=== PATIENT | female | born 1985 | race African-American/Black ===

== ENCOUNTER 2016-10-03 03:45 | Inpatient (IN) | payer MEDICAID, OTHER ==
[2016-10-03 05:20] LABS: APPEARANCE,URINE CLOUDY; BILIRUBIN,URINE NEGATIVE (NEGATIVE); GLUCOSE, URINE NEGATIVE (NEGATIVE); KETONES,URINE NEGATIVE (NEGATIVE); LEUKOCYTE ESTERASE,URINE SMALL (NEGATIVE); NITRITE,URINE NEGATIVE (NEGATIVE); PROTEIN,URINE 100 mg/dL (NEGATIVE); URINE SPECIFIC GRAVITY 1.005; UROBILINOGEN,URINE NEGATIVE mg/dL (<2.0)
[2016-10-03 05:23] LABS: ABSOLUTE EOSINOPHILS # (AUTO) 0.1 10^3/uL (0.0-0.6); ABSOLUTE LYMPHOCYTES (AUTO) 1.7 10^3/uL (0.5-4.7); ABSOLUTE MONOCYTES (AUTO) 0.9 10^3/uL (0.1-1.4); ABSOLUTE NEUT (AUTO) 10.5 10^3/uL (1.7-8.2); BASOPHILS % (AUTO) 0.2 % (0-2); EOSINOPHILS % (AUTO) 0.6 % (0-6); HEMATOCRIT 33.5 % (36.0-47.0); HEMOGLOBIN 10.5 g/dL (12.0-15.5); LYMPHOCYTES % (AUTO) 13.1 % (13-45); MEAN CORPUSCULAR HGB CONC 31.4 g/dL (32.0-36.0); MEAN CORPUSCULAR VOLUME 80 fl (80-97); MONOCYTES % (AUTO) 6.9 % (3-13); RED BLOOD COUNT 4.21 10^6/uL (3.72-5.28); SEGMENTED NEUTROPHILS % (AUTO) 79.2 % (42-78); WHITE BLOOD COUNT 13.2 10^3/uL (4.0-10.5)
[2016-10-03 05:43] LABS: URINE BARBITURATES SCREEN NEGATIVE; URINE METHADONE SCREEN NEGATIVE; URINE OPIATES LOW NEGATIVE; URINE PHENCYCLIDINE SCREEN NEGATIVE
[2016-10-03] MEDS ORDERED: EPHEDRINE SULFATE INJ 50 MG/1 ML AMPULE IV PRN (07:47)
[2016-10-03] MEDS ORDERED: BENZOIN/ALOE VERA/STORAX/TOLU TINCTURE 60 ML TP PRN (07:47)
[2016-10-03] MEDS ORDERED: BUPIVACAINE HCL 0.25 % INJ/PF (2.5 MG/1 ML) 30 ML VIAL INFIL ONE (07:47)
[2016-10-03] MEDS ORDERED: FENTANYL CITRATE INJ/PF 100 MCG/2 ML AMPUL ONE ×4 (08:32→21:16)
[2016-10-03] MEDS ORDERED: EPHEDRINE SULFATE INJ 50 MG/1 ML AMPULE ONE ×2 (08:32→19:32)
[2016-10-03] MEDS: FENTANYL/BUPIVACAINE/NS/PF 100 ML EPI PRN ×4 (08:54→21:29)
[2016-10-03] MEDS: RINGERS SOLUTION,LACTATED 1,000 ML IV PRN ×3 (08:55→15:53)
[2016-10-03] MEDS ORDERED: DEXAMETHASONE SOD PHOSPHATE INJ 4 MG/1 ML VIAL ONE (09:28)
[2016-10-03] MEDS ORDERED: METOCLOPRAMIDE HCL INJ/PF 10 MG/2 ML SDV ONE (09:28)
[2016-10-03] MEDS ORDERED: KETOROLAC TROMETHAMINE 60 MG/2 ML SDV ONE (09:28)
[2016-10-03] MEDS ORDERED: ONDANSETRON HCL INJ/PF 4 MG/2 ML SDV ONE (09:28)
[2016-10-03] MEDS ORDERED: LIDOCAINE 2% INJ-PF (20 MG/ML) 10 ML AMPUL ONE ×2 (09:28→19:20)
[2016-10-03] MEDS ORDERED: BUPIVACAINE HCL 0.25 % INJ/PF (2.5 MG/1 ML) 30 ML VIAL ONE (09:43)
[2016-10-03] MEDS ORDERED: OXYTOCIN/NORMAL SALINE 20 UNIT/1,000 ML RTUINJ ONE ×2 (09:43→19:32)
[2016-10-03] MEDS: OXYTOCIN/NORMAL SALINE 1,000 ML IV PRN ×2 (11:21→21:29)
[2016-10-03] MEDS: DEXTROSE 5%-LACTATED RINGERS 1,000 ML IV PRN ×3 (11:22→21:30)
--- NOTE | 2016-10-03 12:30 | L&D Progress Notes ---
PROGRESS NOTES Datetime Report Generated by CPN: 10/03/2016 12:29 PROGRESS NOTE Impression: Premature Rupture of Membranes Procedures: Sterile Vag Exam Plan: Augmentation Comment: cont to monitor for infection, appropriate cervical change VAGINAL EXAM Dilatation: 2 Effacement: 30 Station: 0 MEMBRANES Pooling: Positive Membranes: Ruptured FETUS A FHR Category: Category I : 39.0 Presentation: Vertex SIGNATURE SIGNATURE: [id number] Signature: with User ID: [email or web address]
--- NOTE | 2016-10-03 15:06 | L&D Progress Notes ---
PROGRESS NOTES Datetime Report Generated by CPN: 10/03/2016 15:06 PROGRESS NOTE Comment: EFW 8 pound 1 oz at recent sono. Head somewhat molded. IUPC placed to eval adequacy of ctxsx-pit currently at 12 mu. Cont induction. VAGINAL EXAM Dilatation: 6 Effacement: 100 Station: -1 FETUS A FHR Category: Category I FETUS C SIGNATURE: [id number] Signature: with User ID: [email or web address]
[2016-10-03] MEDS ORDERED: FENTANYL/BUPIVACAINE/NS/PF 200 MCG/100 ML RTUINJ EPI ONE (15:53)
--- NOTE | 2016-10-03 19:06 | L&D Progress Notes ---
PROGRESS NOTES Datetime Report Generated by CPN: 10/03/2016 19:06 PROGRESS NOTE Impression: Arrest of Dilatation/Descent Informed Consent Obtained: Section Delivery Comment: Cervix unchanged despite adequate ctxs. Head molded. Discussed r/b/a of and consent obtained. FETUS A FHR Category: Category I FETUS C SIGNATURE: [id number] Signature: with User ID: [email or web address]
[2016-10-03] MEDS ORDERED: CITRIC ACID/SODIUM CITRATE ORAL SOLN 15 ML UDCUP PO ONE (19:09)
[2016-10-03] MEDS ORDERED: CEFAZOLIN 2 GM/D5W RTU 50 ML IV PRN (19:09)
[2016-10-03] MEDS ORDERED: CITRIC ACID/SODIUM CITRATE ORAL SOLN 15 ML UDCUP ONE (19:15)
[2016-10-03] MEDS ORDERED: CEFAZOLIN 2 GM/D5W RTU 2 GM/50 ML RTUPB IV ONE (19:15)
[2016-10-03] MEDS ORDERED: OXYTOCIN 10 UNIT/ML VIAL ONE (19:32)
[2016-10-03] MEDS ORDERED: MIDAZOLAM 2 MG/2 ML INJ ONE (19:33)
[2016-10-03] MEDS ORDERED: MISOPROSTOL 0.2 MG TABLET ONE (19:50)
[2016-10-03] MEDS ORDERED: MORPHINE SULFATE 10 MG/ML INJ IV PRN (20:14)
[2016-10-03] MEDS ORDERED: DIPHENHYDRAMINE HCL 50 MG/ML VIAL IV PRN (20:14)
[2016-10-03] MEDS ORDERED: FENTANYL CITRATE INJ/PF 100 MCG/2 ML AMPUL IV PRN ×2 (20:14)
[2016-10-03] MEDS ORDERED: PROMETHAZINE HCL INJ 25 MG/1 ML VIAL IV PRN ×3 (20:14→21:40)
[2016-10-03] MEDS ORDERED: ONDANSETRON HCL INJ/PF 4 MG/2 ML SDV IV PRN ×2 (20:14→21:37)
[2016-10-03] MEDS: FENTANYL CITRATE INJ/PF 100 MCG/2 ML AMPUL IV PRN ×2 (20:25→21:32)
[2016-10-03] MEDS ORDERED: ACETAMINOPHEN 100 ML IV ONE (20:34)
[2016-10-03] MEDS ORDERED: MEPERIDINE HCL/PF INJ 25 MG/1 ML DISP.SYRIN ONE (20:51)
[2016-10-03] MEDS: MEPERIDINE HCL/PF INJ 25 MG/1 ML DISP.SYRIN IV PRN ×2 (20:51→20:58)
[2016-10-03] MEDS ORDERED: ACETAMINOPHEN 325 MG TABLET PO PRN (21:33)
[2016-10-03] MEDS ORDERED: OXYTOCIN/NORMAL SALINE 20 UNIT/1,000 ML RTUINJ INJ PRN (21:33)
[2016-10-03] MEDS ORDERED: PROMETHAZINE HCL INJ 25 MG/1 ML VIAL IM PRN (21:33)
[2016-10-03] MEDS ORDERED: HYDROMORPHONE HCL INJ/PF 2 MG/ML AMPULE IV PRN (21:33)
[2016-10-03] MEDS ORDERED: OXYCODONE-ACETAMINOPHEN 5-325 MG TABLET PO PRN (21:33)
[2016-10-03] MEDS ORDERED: MEASLES,MUMPS&RUBELLA VACC/PF 0.5 ML VIAL SUBCUT PRN (21:33)
[2016-10-03] MEDS ORDERED: DIPH/PERTUSS(ACELL)/TETANUS VAC/PF 0.5 ML SYR (>=10YO) IM PRN (21:33)
--- NOTE | 2016-10-03 21:38 | Delivery Summary ---
Del Sum A-C Datetime Report Generated by CPN: 10/03/2016 21:38 DELIVERY PERSONNEL DELIVERY PERSONNEL: [id number] Delivery Doctor:: Racheal Currie MD Anesthesiologist:: Jennifer Pascal MD JEWELRY ESTIMATOR:: Eliane Amezcua CRNA Labor and Delivery Nurse:: Yadira Gunn RNadding machine servicer Nurse:: Lucia Chino RN Neonatal Nurse Practitioner:: DARLYN Lakhani Nursery Nurse:: Racheal Sung RN Hair Dresser/RIGHT OF WAY APPRAISER: ST [facility] Hair Dresser/RIGHT OF WAY APPRAISER: Kylie Green ST MATERNAL INFORMATION Delivery Anesthesia: Epidural Medications After Delivery: Pitocin Bolus-Please Comment; Other-Please Comment Meds After Delivery Comment: cytotec 1000 mcg MA in OR given by MD Maternal Complications: None LABOR SUMMARY EDC: 10/06/2016 00:00 No. Babies in Womb: 1 Attempted: No Labor Anesthesia: Epidural LABOR INFORMATION Reason for Induction: Not Applicable Onset of Labor: 10/03/2016 12:23 Oxytocin: Augmentation Group B Beta Strep: neg Antibiotics # of Doses: 0 Antibiotics Time of Last Dose: N/A Steroids Given: None Reason Steroids Not Administered: Not Applicable MEMBRANES Membranes Rupture Method: Spontaneous Rupture of Membranes: 10/02/2016 20:00 Length of Rupture (hr): 23.95 Amniotic Fluid Color: Clear Amniotic Fluid Amount: Small Amniotic Fluid Odor: Normal STAGES OF LABOR Stage 3 hr: 0 Stage 3 min: 2 Total Time in Labor hr: 7 Total Time in Labor min: 36 VAGINAL DELIVERY Episiotomy: None Laceration Extension: N/A Laceration Repair: Not Applicable Sponge Count Correct: N/A Sharps Count Correct: N/A CSECTION DELIVERY Primary Indication: failure to progress CSection Urgency: Non-Scheduled CSection Incidence: N/A Labor: Labor Elective: Nonelective CSection Incision: N/A BABY A INFORMATION Infant Delivery Date/Time: 10/03/2016 19:57 Method of Delivery: Born in Route : No : N/A Forceps: N/A Vacuum Extraction: N/A Shoulder Dystocia : No PRESENTATION/POSITION BABY A Presentation: Cephalic Cephalic Presentation: Vertex Breech Presentation: N/A PLACENTA INFORMATION BABY A Placenta Delivery Time : 10/03/2016 19:59 Placenta Method of Delivery: Expressed Placenta Status: Delivered SCORES BABY A Heart Rate 1 min: >100 bpm Resp Effort 1 min: Good Cry Reflex Irritability 1 min: Cough or Sneeze or Pulls Away Muscle Tone 1 min: Active Motion Color 1 min: Blue/Pale SCORE 1 MIN: 8 Heart Rate 5 min: >100 bpm Resp Effort 5 min: Good Cry Reflex Irritability 5 min: Cough or Sneeze or Pulls Away Muscle Tone 5 min: Active Motion Color 5 min: Body [place], Extremities Blue SCORE 5 MIN: 9 INFANT INFORMATION BABY A Gestational Age at Delivery: 39.4 Gestational Status: Full Term- 39- 40.6 Weeks Infant Outcome : Liveborn Infant Condition : Stable Infant Sex: Male IDENTIFICATION BABY A Infant Verification Date/Time: 10/03/2016 19:59 ID Band Number: [id number] Mother's Name Verified: Yes Infant RN Verifying Infant: Hao Gunn, RN Additional Verifying Personnel: Leonardo Chino RN WEIGHT/LENGTH BABY A Infant Birthweight (gm): 4380 Weight (lb): 9 Infant Weight (oz): 10 Infant Length (in): 21.00 Infant Length (cm): 53.34 CORD INFORMATION BABY A No. Cord Vessels: 3 Nuchal Cord : N/A Cord Blood Taken: Yes-For Eval (Mom's Blood Type - or O+) Suction: Mouth; Nose ASSESSMENT BABY A Complications: None Physical Findings at Delivery: Molding of the Head Physical Findings- Other: initial assessment to be completed by Ricardo sung RN who is at bedside Infant Respirations: Appears Normal Skin to Skin: Yes Data Services Developer/ALS Called : Yes Care By: Ricardo Sung RN Transferred To: [facility]
--- NOTE | 2016-10-03 21:39 | OPERATIVE REPORT E ---
Operative Report NAME: SHASHA OLIVEIRA : 1985 AGE: 31Y DATE OF SURGERY: 10/03/2016 ROOM: LR200 PREOPERATIVE DIAGNOSIS: Intrauterine at term with premature rupture of membranes, arrest of labor. POSTOPERATIVE DIAGNOSIS: Intrauterine at term with premature rupture of membranes, arrest of labor. OPERATION: Primary low-transverse . SURGEON: NADER DIAZ M.D. ANESTHESIA: Epidural which was bolus. ESTIMATED BLOOD LOSS: 600 mL. SPECIMEN TO PATHOLOGY: Placenta. FINDINGS: Adams male infant, vertex presentation. Apgars 8 and 9. Weight was 4380 gm or 9 pounds 10 ounces. Normal-appearing uterus, tubes, and ovaries. DESCRIPTION OF PROCEDURE: After discussing risks, benefits, and alternatives of the procedure and obtaining informed consent, the patient was taken to the operating room with her epidural bolus. She was positioned in the dorsal supine position with a leftward tilt and prepped and draped in the usual standard fashion. Anesthesia was found to be adequate and Pfannenstiel skin incision was made. The abdomen was entered in layers in the usual standard fashion. A low transverse cervical incision was made. Surgeon's hand was entered into the hysterotomy incision and the vertex elevated out of the pelvis and delivered. The shoulders and body delivered thereafter. Cord was clamped x2 and cut. Nasopharynx and oropharynx were bulb suctioned. was handed to pediatrics who were present. Placenta was manually extracted. Uterus was exteriorized and cleared of all clots and debris. Hysterotomy incision was closed with 0 Monocryl in a double-layer fashion. Excellent hemostasis was observed. Uterus, tubes, and ovaries returned to the peritoneal cavity, and the cavity was irrigated. Hemostasis was again assured. A layer of Interceed was placed over the anterior aspect of the uterus and lower uterine segment. The peritoneum was closed with 2-0 Vicryl in a running fashion. The rectus muscles were loosely reapproximated with 2-0 Vicryl in an interrupted fashion. The subfascial spaces were inspected and noted to be hemostatic. The fascia was closed with #1 Vicryl. Subcutaneous tissues were irrigated and hemostasis achieved with cautery. Skin was closed in a subcuticular fashion with 4-0 Vicryl. An OpSite dressing was applied. Cytotec 1000 mcg was placed in the rectum, as the patient had had a large infant and protracted labor. All sponge, needle, lap, and instrument counts were correct x2. DICTATING PHYSICIAN: NADER DIAZ M.D. [id number] PHY#: [id number] ID: [id number] JOB#: [id number] ACCT: [id number] cc:NADER DIAZ M.D. >
[2016-10-03] MEDS ORDERED: NA PHOS,M-B/NA PHOS,DI-BA (ADULT) 133 ML ENEMA PR PRN (21:40)
[2016-10-03] MEDS ORDERED: DIPHENHYDRAMINE HCL 25 MG CAPSULE PO PRN (21:40)
[2016-10-03] MEDS ORDERED: PROMETHAZINE HCL 25 MG SUPP.RECT PR PRN (21:40)
[2016-10-03] MEDS ORDERED: ACETAMINOPHEN 650 MG SUPP.RECT PR PRN (21:40)
[2016-10-03] MEDS ORDERED: PROMETHAZINE HCL 25 MG TABLET PO PRN (21:40)
[2016-10-03] MEDS ORDERED: PSEUDOEPHEDRINE HCL 30 MG TABLET PO PRN (21:40)
[2016-10-03] MEDS ORDERED: GLYCERIN/WITCH HAZEL LEAF 1 EACH MED..PAD TP PRN (21:40)
[2016-10-03] MEDS ORDERED: MAGNESIUM HYDROXIDE SUSP 30 ML UDCUP PO PRN (21:40)
[2016-10-03] MEDS ORDERED: OXYTOCIN/NORMAL SALINE 1,000 ML IV PRN (21:42)
[2016-10-03] MEDS ORDERED: ACETAMINOPHEN INJ/PF 1000 MG/100 ML SDV IV ONE (21:45)
[2016-10-03] MEDS: KETOROLAC TROMETHAMINE INJ/PF 30 MG/1 ML SDV IV SCH (21:57)
[2016-10-03] MEDS ORDERED: MORPHINE SULFATE 10 MG/ML INJ ONE (22:32)
--- NOTE | 2016-10-03 23:41 | Admission Physical ---
Datetime Report Generated by CPN: 10/03/2016 23:41 CURRENT ADMISSION Chief Complaint: Uterine Contractions; Suspected Ruptured Membranes Indication for Induction: Not Applicable Admit Plan: Admit to Unit; Initiate Labor Protocol ALLERGIES Medication Allergies: No Medication Allergies: No Known Allergies (10/03/2016) Latex: No Latex Allergies Food Allergies: None Environmental Allergies: None OBSTETRICAL HISTORY EDC: 10/06/2016 00:00 : 1 Para: 0 Term: 0 : 0 SAB: 0 IAB: 0 Ectopic: 0 Livin Cesareans: 0 VBACs: 0 Multiple Births: 0 Gestational Diabetes: No Rh Sensitization: No Incompetent Cervix: No VIKTORIA: No Infertility: No ART Treatment: No Uterine Anomaly: No IUGR: No Hx Previous C/S: No Macrosomia: No Hx Loss/Stillborn: No PIH: No Hx : No Placenta Previa/Abruption: No Depression/PP Depression: No PTL/PROM: No Post Hemorrhage: No Current Procedures: Ultrasound Obstetrical History Comments: 2016 current SEE RECORDS Alcohol: No Marijuana : No Cocaine: No Other Illicit Drugs: No Cigarettes: Never Smoker. 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 Surgery: No Heart Disease: No Hosp/Surgery: No Autoimmune Disorder: No Anesthetic Complications: No Kidney Disease: No Abnormal Pap Smear: No Neuro/Epilepsy: No Psychiatric Disorders: No Other Medical Diseases: No Hepatitis/Liver Disease: No Significant Family History: No Varicosities/Phlebitis: No Trauma/Violence : No Thyroid Dysfunction: No INFECTIOUS HISTORY Gonorrhea: No Genital Herpes: No Chlamydia: No Tuberculosis: No Syphilis: No Hepatitis: No HIV/AIDS Exposure: No Rash or Viral Illness: No HPV: No PHYSICAL EXAM General: Normal HEENT: Normal Neurologic: Normal Thyroid: Normal Heart: Normal Lungs: Normal Breast: Deferred Back: Normal Abdomen: Normal Genitourinary Exam: Normal Extremities: Normal DTRs: Normal Pelvic Type: Adequate Vital Signs: Reviewed VAGINAL EXAM Dilatation: 6 Dilatation: 2 Effacement: 100 Effacement: 30 Station: -1 Station: 0 MEMBRANES Pooling: Positive Membranes: Ruptured FETUS A EGA: 39.4 Monitoring: External US FHR- Baseline: 150 Variability: Moderate 6-25bpm Decelerations: None FHR Category: Category I Presentation: Vertex PLANS FOR LABOR AND DELIVERY Labor and Delivery: None Pain Management: Epidural Feeding Preference: Breast Benefit of Breast Feed Discussed: Yes Circumcision: Yes INFORMED CONSENT Informed Consent Obtained: Section Delivery Signature: with User ID: [email or web address]
[2016-10-03] MEDS: FAMOTIDINE 20 MG TABLET PO SCH (23:53)
[2016-10-04] MEDS: CEFAZOLIN 1 GM/D5W RTU 1 GM/50 ML RTUPB IV SCH ×2 (01:12→09:45)
[2016-10-04] MEDS: KETOROLAC TROMETHAMINE INJ/PF 30 MG/1 ML SDV IV SCH ×2 (05:17→14:56)
[2016-10-04 07:30] LABS: HEMATOCRIT 30.6 % (36.0-47.0); HEMOGLOBIN 9.7 g/dL (12.0-15.5); HGB HCT DIFFERENCE -1.5; MEAN CORPUSCULAR HGB CONC 31.9 g/dL (32.0-36.0); MEAN CORPUSCULAR VOLUME 78 fl (80-97); RED CELL DISTRIBUTION WIDTH 17.4 % (11.5-14.0)
[2016-10-04] MEDS: OXYCODONE-ACETAMINOPHEN 5-325 MG TABLET PO PRN (09:43)
[2016-10-04] MEDS: PRENATAL VITAMIN W-O CA NO5/FE FUMARATE/FA CAPSULE PO SCH (09:44)
[2016-10-04] MEDS: DOCUSATE SODIUM 100 MG CAPSULE PO SCH ×2 (09:44→18:14)
[2016-10-04] MEDS: FAMOTIDINE 20 MG TABLET PO SCH ×2 (09:45→21:55)
--- NOTE | 2016-10-04 12:05 | PDOC PROGRESS REPORT ---
Subjective-OB Subjective: Post Delivery Day: 31 year old. Denies any needs at this time s/p primary c section greater than 24 hours ruptured- was on Ancef- iv infiltrated pt only received 2 doses afebrile WBC 21. will restart iv at this time abdomen distended and tympanic- not painful bs x4- encouraged pt to ambulate hourly reports burping no flatus, no bowel movement dressing dry and intact no new drainage noted abdominal binder to belly ff@u-1 instructions reviewed with pt and mother Physical Exam (OB) Vital Signs: Temp Pulse Resp BP Pulse Ox 97.7 F 87 17 122/81 98 10/04/16 07:50 10/04/16 07:50 10/04/16 07:50 10/04/16 07:50 10/04/16 07:50 Intake & Output 10/03/16 10/04/16 10/05/16 06:59 06:59 06:59 Output Total 2400 900 Balance -2400 -900 Weight 77.9 kg - Dressing Removed: No - opsite dressing in place Incision: Dressing Closure Type: Sutures - Lochia Lochia Amount: Scant < 10 ml Lochia Color: Rubra/Red - Abdomen Description: Tender, Soft Hernia Present: No Fundal Description: Firm, Midline Fundal Height: u/u - u/2 Objective-Diagnostic Laboratory: 10/04/16 07:10 10/04/16 07:10 WBC 21.0 H RBC 3.90 Hgb 9.7 L Hct 30.6 L MCV 78 L MCH 25.0 L MCHC 31.9 L RDW 17.4 H Plt Count 168
[2016-10-04] MEDS ORDERED: RINGERS SOLUTION,LACTATED 1,000 ML IV PRN (18:00)
[2016-10-04] MEDS: IBUPROFEN 800 MG TABLET PO SCH (21:55)
[2016-10-04] MEDS: SIMETHICONE 80 MG TAB.CHEW PO PRN (22:06)
[2016-10-05] MEDS: IBUPROFEN 800 MG TABLET PO SCH ×3 (03:37→14:00)
[2016-10-05] MEDS: OXYCODONE-ACETAMINOPHEN 5-325 MG TABLET PO PRN (03:37)
[2016-10-05] MEDS: FAMOTIDINE 20 MG TABLET PO SCH (09:48)
[2016-10-05] MEDS: PRENATAL VITAMIN W-O CA NO5/FE FUMARATE/FA CAPSULE PO SCH (09:48)
[2016-10-05] MEDS: DOCUSATE SODIUM 100 MG CAPSULE PO SCH ×2 (09:48→17:08)
[2016-10-05] MEDS: SIMETHICONE 80 MG TAB.CHEW PO PRN (09:48)
--- NOTE | 2016-10-05 10:28 | PDOC PROGRESS REPORT ---
Subjective-OB Subjective: Post Delivery Day: 2 31 year old. Denies any needs at this time, struggling with , unsure about discharge to day, voiding, passing gas, pain well controlled. Pt will discuss with her mother and decide later. Lochia is stable. Physical Exam (OB) Vital Signs: Temp Pulse Resp BP Pulse Ox 98.0 F 92 16 121/72 99 10/05/16 08:10 10/05/16 08:10 10/05/16 08:10 10/05/16 08:10 10/05/16 08:10 Intake & Output 10/04/16 10/05/16 10/06/16 06:59 06:59 06:59 Intake Total 2450 Output Total 2400 1900 Balance -2400 550 Weight 77.9 kg - Dressing Removed: No - opsite Incision: Dressing Closure Type: Sutures - Lochia Lochia Amount: Small 10-25 ml Lochia Color: Rubra/Red - Abdomen Description: Soft, Round Hernia Present: No Fundal Description: Firm, Midline Fundal Height: u/u - u/2 Objective-Diagnostic Laboratory: 10/04/16 07:10 Assessment and Plan(PN) - Assessment and Plan (1) Acute blood loss anemia Is this a current diagnosis for this admission?: YesPlan: ferrous sulfate increase dietary iron (2) Delivery by emergency caesarean section Is this a current diagnosis for this admission?: YesPlan: routine post op care d/c home late may cancel d/c if pt needs more assistance or baby is not d/c - Time Spent with Patient Time with patient: Less than 15 minutes Critical Time spent with patient: Less than 15 minutes Medications reviewed and adjusted accordingly: Yes - Disposition Anticipated Discharge: Home Within: within 24 hours
--- NOTE | 2016-10-05 10:30 | PDOC DISCHARGE SUMMARY ---
Final Diagnosis Discharge Date: 10/05/16 - Final Diagnosis (1) Acute blood loss anemia Is this a current diagnosis for this admission?: Yes (2) Delivery by emergency caesarean section Is this a current diagnosis for this admission?: Yes Discharge Data - Discharge Medication Home Medications: Vit/Iron Fumarate/FA [ Tablet] 1 tab PO DAILY 10/03/16 Docusate Sodium [Colace 100 mg Capsule] 100 mg PO BID #60 capsule 10/05/16 Ferrous Sulfate [Iron] 325 mg PO BID #60 tablet 10/05/16 Ibuprofen [Motrin 800 mg Tablet] 800 mg PO Q6A #60 tablet 10/05/16 Oxycodone HCl/Acetaminophen [Percocet 5-325 mg Tablet] 2 tab PO Q4HP PRN #30 tablet 10/05/16 Gestational Age: 39.4 Reason(s) for Admission: Onset of Labor Procedures: NST Intrapartum Procedure(s): : Low Cervical, Transverse - Data Baby 1 Male at 1 minute: 8 at 5 minutes: 9 Weight: 4380 kg Home with Mother: Yes Complications: Yes - temp in l and d - Diagnosis Test Laboratory: Temp Pulse Resp BP Pulse Ox 98.0 F 92 16 121/72 99 10/05/16 08:10 10/05/16 08:10 10/05/16 08:10 10/05/16 08:10 10/05/16 08:10 10/03/16 10/03/16 10/04/16 04:00 05:00 07:10 RBC 4.21 3.90 Hgb 10.5 L 9.7 L Hct 33.5 L 30.6 L Urine Opiates Screen NEGATIVE - Discharge information/Instructions Discharge Activity: Balance Activity w/Rest, No Driving, No Lifting Over 10 Pounds, Pelvic Rest, No tub bath Discharge Diet: Regular Disposition: HOME, SELF-CARE Follow up with: [facility] in: 1, Weeks
[2016-10-05 15:39] VITALS: BP 126/80
== END 2016-10-05 17:26 | disposition home or self-care (01) | DRG 765 ==
LOC: LC 03:45 → LR 04:25 → 2S 22:40
PROVIDERS: ADMIT Obstetrics & Gynecology; ATTEND Specialist
PROC: 10D00Z1 Extraction of Products of Conception, Low, Open Approach (ICD-10-PCS; principal; 2016-10-03)
PROC: 10H07YZ Insertion of Other Device into Products of Conception, Via Natural or Artificial Opening (ICD-10-PCS; 2016-10-03)
PROC: 4A1H7CZ Monitoring of Products of Conception, Cardiac Rate, Via Natural or Artificial Opening (ICD-10-PCS; 2016-10-03)
DX: O62.2 Other uterine inertia (principal); D62 Acute posthemorrhagic anemia; O42.02 Full-term premature rupture of membranes, onset of labor within 24 hours of rupture; O99.02 Anemia complicating childbirth; Z3A.39 39 weeks gestation of pregnancy; Z37.0 Single live birth
CPT/HCPCS: 1961; 36415; 80307; 81005; 85025; 85027; 86592; 86850; 86900; 86901; 88307; 94760; 94799; J0131; J0690; J1100; J1170; J1885; J2175; J2250; J2270; J2405; J2590; J2765; J3010; J3490; J7120

== ENCOUNTER 2019-03-08 20:57 | Emergency (ER) | payer OTHER ==
[2019-03-08 21:03] VITALS: BP 120/69
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
== END 2019-03-08 22:10 | disposition home or self-care (01) ==
LOC: ER 20:57
DX: M79.642 Pain in left hand (principal); M79.671 Pain in right foot; M54.2 Cervicalgia; M54.5 Low back pain; R29.898 Other symptoms and signs involving the musculoskeletal system; V49.40XA Driver injured in collision with unspecified motor vehicles in traffic accident, initial encounter
CPT/HCPCS: 99283